=== PATIENT | male | born 1960 | race Caucasian/White ===

== ENCOUNTER 2018-03-03 06:03 | Day surgery (SDC) | payer SELFPAY ==
[~2018-03-03 06:03] MED LIST: Lactated Ringers 1,000 ML IV SCH; Lidocaine 1%/Sod Bicarbonate in NS 8.4% 1 ML Syringe IDERM PRN; Sodium Chloride 0.9% 10 ML Syringe FLUSH PRN
[2018-03-03] MEDS ORDERED: Propofol 200 MG/20 ML SDV ONE (07:20)
[2018-03-03] MEDS ORDERED: Rocuronium 50 MG/5 ML Vial ONE (07:22)
[2018-03-03] MEDS ORDERED: ceFAZolin 1 GM Vial ONE ×2 (07:24)
--- NOTE | 2018-03-03 07:26 | PCM.PREANE ---
Preanesthetic Assessment - Procedure Proposed Procedure: I&D and partial amputation of right 5th metatarsal - Anesthesia/Transfusion/Family Hx Anesthesia History: Prior Anesthesia Without Reaction Family History of Anesthesia Reaction: No Transfusion History: No Prior Transfusion(s) - Review of Systems General: No Symptoms Pulmonary: No Symptoms Cardiovascular: No Symptoms Gastrointestinal: No Symptoms Neurological: No Symptoms Other: Reports: Diabetes - Physical Assessment NPO Status Date: 03/03/18 NPO Status Time: 23:00 O2 Sat by Pulse Oximetry: 93 Respiratory Rate: 18 Vital Signs: Last Vital Signs Temp 36.7 C 03/03/18 06:05 Pulse 79 03/03/18 06:05 Resp 18 03/03/18 06:05 BP 154/85 H 03/03/18 06:05 Pulse Ox 93 L 03/03/18 06:05 Height: 1.8 m Weight: 102.512 kg ASA Class: 2 Mental Status: Alert & Oriented x3 Airway Class: Mallampati = 3 Dentition: Reports: Dentures (upper ) Thyro-Mental Finger Breadths: 4 Mouth Opening Finger Breadths: 4 ROM/Head Extension: Full Lungs: Clear to Auscultation, Normal Respiratory Effort Cardiovascular: Regular Rate, Regular Rhythm - Lab Values: Laboratory Last Values POC Glucose 150 mg/dL (70-105) H 03/03/18 06:11 - Allergies Allergies/Adverse Reactions: Allergies Allergy/AdvReac Type Severity Reaction Status Date / Time No Known Allergies Allergy Verified 03/03/18 06:59 - Blood Blood Available: No Product(s) Available: None - Anesthesia Plan Pre-Op Medication Ordered: None - Acknowledgements Anesthesia Type Planned: General Anesthesia Pt an Appropriate Candidate for the Planned Anesthesia: Yes Alternatives and Risks of Anesthesia Discussed w Pt/Guardian: Yes Pt/Guardian Understands and Agrees with Anesthesia Plan: Yes PreAnesthesia Questionnaire - SUBSTANCE USE Smoking Status *Q: Former Smoker Recreational Drug Use History: No - HOME MEDS Home Medications: Home Meds Aspirin 81 mg PO DAILY 03/02/18 [History] Insulin Glargine,Hum.Rec.Anlog [Lantus Solostar] 40 units SQ QAM 03/02/18 [ History] atorvaSTATin [Lipitor] 20 mg PO DAILY 03/02/18 [History] metFORMIN [Glucophage XR] 500 mg PO DAILY 03/02/18 [History] Acetaminophen/HYDROcodone [[place] 325-5 MG] 1 - 2 tab PO Q6H PRN #40 tablet 03/03 [Rx] Enoxaparin Sodium [Lovenox] 40 mg SQ DAILY #14 ml 03/03/18 [Rx] - CURRENT (IN HOUSE) MEDS Current Meds: Current Medications Lactated Ringer's (Ringers, Lactated) 1,000 mls @ 125 mls/hr IV ASDIRECTED DEA Lidocaine/Sodium Bicarbonate (Buffered Lidocaine 1% In Ns 8.4%) 0.25 ml IDERM ONETIME PRN PRN Reason: Prior to IV Start Sodium Chloride (Saline Flush) 10 ml FLUSH ASDIRECTED PRN PRN Reason: Keep Vein Open
[2018-03-03] MEDS ORDERED: fentaNYL 250 MCG/5 ML SDV ONE (07:27)
[2018-03-03] MEDS ORDERED: Sodium Chloride 0.9% 1,000 ML IV SCH (07:30)
[2018-03-03] MEDS ORDERED: Lidocaine 1% 2 ML ONE ×2 (07:32)
[2018-03-03] MEDS ORDERED: Midazolam 1 MG/ML 2 ML SDV ONE (07:33)
[2018-03-03] MEDS ORDERED: Neostigmine Methylsulfate 10 MG/10 ML MDV ONE (08:26)
[2018-03-03] MEDS ORDERED: ePHEDrine 50 MG/ML SDV ONE (08:26)
[2018-03-03] MEDS ORDERED: Glycopyrrolate 0.2 MG/ML SDV ONE (08:26)
[2018-03-03] MEDS ORDERED: Lactated Ringers 0 ML ONE (08:43)
[2018-03-03] MEDS ORDERED: Sodium Chloride 0.9% 1,000 ML ONE (08:43)
--- NOTE | 2018-03-03 09:12 | CR ---
Right foot: Single fluoroscopic spot view was obtained utilizing C-arm device. Study shows probe device along the lateral midfoot. Fluoroscopy time given is 6.7 seconds. Impression: 1. Procedural study. Diagnostic code #2
[2018-03-03] MEDS ORDERED: Meperidine PF 50 MG/ML Syringe IVPUSH PRN (09:32)
[2018-03-03] MEDS ORDERED: fentaNYL 100 MCG/2 ML SDV IVPUSH PRN (09:32)
[2018-03-03] MEDS ORDERED: Ondansetron 4 MG/2 ML SDV IVPUSH PRN (09:32)
[2018-03-03] MEDS ORDERED: diphenhydrAMINE 50 MG/ML SDV IVPUSH PRN (09:32)
--- NOTE | 2018-03-03 09:32 | PCM.POSTAN ---
POST ANESTHESIA ASSESSMENT - MENTAL STATUS Mental Status: Alert, Oriented - VITAL SIGNS Pulse Rate: 91 SaO2: 95 Resp Rate: 12 Blood Pressure: 131/76 Temperature: 36.6 C - RESPIRATORY Respiratory Status: Respiratory Rate WNL, Airway Patent, O2 Saturation Stable, Supplemental Oxygen - CARDIOVASCULAR CV Status: Pulse Rate WNL, Blood Pressure Stable - GASTROINTESTINAL GI Status: No Symptoms - PAIN Pain Score: 0 - POST OP HYDRATION Hydration Status: Adequate & Stable
--- NOTE | 2018-03-03 10:45 | PCM.SN ---
- Free Text/Narrative Note: Note: PICC line insertion Date: 03-03-18 Start: 0955 Stop: [address] Perez for PICC placement for residential antibiotic use. Chart reviewed. Patient educated. Agrees to proceed. Consent signed. Site cleansed with ChloraPrep. Ultrasound guidance used to locate right proximal antecubital vein with sterile US sleeve. Lidocaine 1% local anesthetic injected prior to 20ga IV catheter insertion. Sterile gown, gloves and drape used. 4fr [place] NXT ClearVue PICC inserted 50cm per sterile technique right proximal antecubital. Secured with statlock. Flushes well with NaCl with good blood return. Dressed with opsite with CHG. Chest Xray taken. Confirmed SVC placement per radiologist. Leroy Carr RN MDS
--- NOTE | 2018-03-03 10:52 | CR ---
Chest: Portable view of the chest was obtained. Comparison: No prior chest x-ray. Right-sided PICC line is seen. Tip lies in the expected region of the superior vena cava which is satisfactory in position. Heart size and mediastinum are normal. Lungs are clear. Bony structures are grossly intact. Impression: 1. Satisfactory position of PICC line. Diagnostic code #2
[2018-03-03] MEDS ORDERED: Vancomycin 1.75 GM in Sodium Chloride 0.9% 500 ML IV ONE (11:00)
[2018-03-03] MEDS ORDERED: Cefepime 2 GM in Premix Bag 1 BAG IV ONE (11:15)
--- NOTE | 2018-03-03 17:52 | PCM48HPAN ---
Post Anesthesia Note - EVALUATION WITHIN 48HRS OF ANESTHETIC Vital Signs in Normal Range: Yes Patient Participated in Evaluation: Yes Respiratory Function Stable: Yes Airway Patent: Yes Cardiovascular Function Stable: Yes Hydration Status Stable: Yes Pain Control Satisfactory: Yes Nausea and Vomiting Control Satisfactory: Yes Mental Status Recovered: Yes
--- NOTE | 2018-03-08 06:50 | PCM.OPNOTE ---
- General Post-Op/Procedure Note Date of Surgery/Procedure: 03/03/18 Operative Procedure(s): right foot irrigation and debridement with wound vac placement Pre Op Diagnosis: right foot abscess Post-Op Diagnosis: Same Anesthesia Technique: General LMA Primary Surgeon: Marcelo Perez Anesthesia Provider: Leroy Carr Family Member Caretaker: Cherry Varghese in mLs: 10 Complications: None Condition: Good
--- NOTE | 2018-03-08 07:16 | OR ---
DATE OF OPERATION: 03/03/2018 SURGEON: Marcelo Perez MD OPERATION PERFORMED: Right foot irrigation and debridement with wound VAC placement. PREOPERATIVE DIAGNOSIS: Right foot abscess. POSTOPERATIVE DIAGNOSIS: Right foot abscess. ANESTHESIA: General LMA with local. ANESTHESIA PROVIDER: Leroy Carr. HANDCREW FOREMAN: Cherry Varghese PA-C. ESTIMATED BLOOD LOSS: 10 mL. COMPLICATIONS: None. CONDITION: Stable. DESCRIPTION OF PROCEDURE: The patient was identified in the preoperative holding area. Proper site was marked and identified by the surgeon. The patient was taken back to the operating theater where after adequate anesthesia, the patient's right lower extremity had nonsterile tourniquet applied and it was then sterilely prepped and draped in the usual sterile fashion. OR time-out was performed. The patient received antibiotics after cultures were taken intraoperatively. At this time, right lower extremity was elevated and tourniquet was insufflated 250 mmHg. At this time, the patient's large previous wound bed was identified. There was noted to be a lot of tissue around the periphery as well as in the wound bed. The patient also did have small scab over the dorsal lateral aspect of the proximal foot that was unroofed. There was noted to be significant purulent formation in there. At this time, this was unroofed and a curette and rongeur were used to resect tissue at this time. At this time, on the wound bed, I did resect tissue and skin from around the wound bed as well as muscle and brought back to clean margins all throughout the foot. I did debride roughly 20 square cm of tissue. There was exposed bone noted as well as tendon. The tendon was resected. The bone was able to be covered with plantar aspect of the soft tissue and muscle. At this time, a 3 L of normal saline was irrigated through the foot. Again, more debridement was then done of any nonviable looking tissue. At this time, 3-0 nylon simple sutures were used as retention to approximate soft tissue over the bone and tendon. At this time, I did get good closure over it. Next, a wound VAC was then placed over the right foot over both areas, unroofed ulceration as well as previous open wound bed. Measurements were taken at this time by wound therapy. The patient had a wound VAC placed and was sent to PACU in stable condition. We will begin IV antibiotics. TAMARA: 03/08/2018 06:53:23 MMODAL /[id number]
== END 2018-03-03 13:50 | disposition home or self-care (01) ==
LOC: JD.SDS 06:03
PROVIDERS: ATTEND Orthopaedic Surgery
DX: L02.611 Cutaneous abscess of right foot (principal); E11.10 Type 2 diabetes mellitus with ketoacidosis without coma; E11.40 Type 2 diabetes mellitus with diabetic neuropathy, unspecified; I73.9 Peripheral vascular disease, unspecified; E88.09 Other disorders of plasma-protein metabolism, not elsewhere classified; Z87.891 Personal history of nicotine dependence; Z79.82 Long term (current) use of aspirin; Z79.4 Long term (current) use of insulin; Z79.899 Other long term (current) drug therapy
CPT/HCPCS: 11043; 76000; 82962; 87075; 87077; 87186; 87205; 87641; 93005; C1751; J0690; J0692; J2250; J2710; J3010; J3370; J3490; J7040; 01470; 36569; J2001; J2704; J7120

== ENCOUNTER 2018-03-10 18:59 | Emergency (ER) | payer OTHER ==
[2018-03-10] MEDS ORDERED: Furosemide 40 MG/4 ML VIAL IVPUSH ONE (19:29)
--- NOTE | 2018-03-10 19:48 | EDM.PDOC ---
ED HPI GENERAL MEDICAL PROBLEM - General Chief Complaint: Cardiovascular Problem Stated Complaint: SWELLING IN HIS FEET Time Seen by Provider: 03/10/18 19:24 Source of Information: Reports: Patient, Family History Limitations: Reports: No Limitations - History of Present Illness INITIAL COMMENTS - FREE TEXT/NARRATIVE: Patient is a 57-year-old male who presents to the ED complaining of retaining fluids. Patient states he's gained approximately 30lbs Over the past month. Patient is a diabetic and underwent amputation of the right fifth toe secondary to osteomyelitis. In addition he's had angioplasty of the right leg to which did not reveal any significant blockages. He is seeing Dr. Perez for further management. Amputation of the right toe took place in [facility] by a general surgeon. Since starting IV vancomycin he has increased swelling to his legs and abdomen. In addition is experiencing some PND and orthopnea. There has been no chest pain or increased SOB with exertion. There's been no documented fever or pain with urination. He has been eating a high protein low salt diabetic diet. He has no history of congestive heart failure and/or kidney disease. He did see Dr. Hughes on follow-up visit today in which they would not start the patient on any diuretics. Patient also spoke to his PCP Dr. Coffman without further workup they would not start Lasix as well. They were in fear the patient may have had a silent PA. Again patient had no CP or increasing shortness of breath with exertion. Over the past few weeks has been more sedentary than normal. - Related Data Allergies Allergy/AdvReac Type Severity Reaction Status Date / Time No Known Allergies Allergy Verified 03/10/18 19:18 Home Meds: Home Meds Aspirin 81 mg PO DAILY 03/02/18 [History] Insulin Glargine,Hum.Rec.Anlog [Lantus Solostar] 40 units SQ QAM 03/02/18 [ History] atorvaSTATin [Lipitor] 20 mg PO DAILY 03/02/18 [History] metFORMIN [Glucophage XR] 500 mg PO DAILY 03/02/18 [History] Acetaminophen/HYDROcodone [[place] 325-5 MG] 1 - 2 tab PO Q6H PRN #40 tablet 03/03 [Rx] Enoxaparin Sodium [Lovenox] 40 mg SQ DAILY #14 ml 03/03/18 [Rx] Furosemide [Lasix] 20 mg PO BID #60 tab 03/10/18 [Rx] Potassium Chloride [Klor-Con M20] 20 meq PO QAM #30 tab.er 03/10/18 [Rx] Social & Family History - Tobacco Use Smoking Status *Q: Former Smoker Used Tobacco, but Quit: Yes Month/Year Tobacco Last Used: Dec 2017 - Caffeine Use Caffeine Use: Reports: None - Recreational Drug Use Recreational Drug Use: No Drug Use in Last 12 Months: No ED ROS GENERAL - Review of Systems Review Of Systems: See Below ED EXAM, GENERAL - Physical Exam Exam: See Below Exam Limited By: No Limitations General Appearance: Alert, WD/WN, No Apparent Distress Ears: Hearing Grossly Normal Nose: Normal Inspection Throat/Mouth: Normal Voice, No Airway Compromise Neck: Normal Inspection, Supple Respiratory/Chest: No Respiratory Distress, Lungs Clear, Normal Breath Sounds, No Accessory Muscle Use, Chest Non-Tender Cardiovascular: Normal Peripheral Pulses, Regular Rate, Rhythm, No Murmur Peripheral Pulses: 2+: Femoral (L), Femoral (R), 4+: Radial (R) GI/Abdominal: Normal Bowel Sounds, Soft, Non-Tender, No Organomegaly, Distended Extremities: Pedal Edema, Other (Walking boot to the right foot with sock. ) Neurological: Alert, Oriented, CN II-XII Intact, Normal Cognition Psychiatric: Normal Affect, Normal Mood Skin Exam: Warm, Dry, Intact, Normal Color EKG INTERPRETATION EKG Date: 03/10/18 Time: 19:29 Rhythm: Other (Sinus rhythm) Rate (Beats/Min): 80 [place]: RAD-Right [place] Deviation P-Wave: Present QRS: Normal ST-T: Depressed (Inferior lateral leads. No acute ST changes.) QT: Normal SD/PQ Interval: 180 Course - Orders/Labs/Meds Labs: Laboratory Tests 03/10/18 03/10/18 03/10/18 Range/Units 20:04 20:04 20:04 WBC 7.80 (4.23-9.07) K/mm3 RBC 4.33 L (4.63-6.08) M/mm3 Hgb 12.7 L (13.7-17.5) gm/L Hct 40.1 (40.1-51.0) % MCV 92.6 H (79.0-92.2) fl MCH 29.3 (25.7-32.2) pg MCHC 31.7 L (32.2-35.5) g/dl RDW Std Deviation 43.2 (35.1-43.9) fL Plt Count 195 (163-337) K/mm3 MPV 11.0 (9.4-12.3) fl Neutrophils % (Manual) 60 (40-60) % Band Neutrophils % 0 (0-10) % Lymphocytes % (Manual) 32 (20-40) % Atypical Lymphs % 0 % Monocytes % (Manual) 1 L (2-10) % Eosinophils % (Manual) 6 (0.8-7.0) % Basophils % (Manual) 1 (0.2-1.2) Platelet Estimate Adequate RBC Morph Comment Normal Sodium 140 (136-145) mEq/L Potassium 3.9 (3.5-5.1) mEq/L Chloride 105 (98-107) mEq/L Carbon Dioxide 28 (21-32) mEq/L Anion Gap 10.9 (5-15) BUN 12 (7-18) mg/dL Creatinine 1.0 (0.7-1.3) mg/dL Est Cr Clr Drug Dosing TNP Estimated GFR (MDRD) > 60 (>60) mL/min BUN/Creatinine Ratio 12.0 L (14-18) Glucose 171 H (74-106) mg/dL Calcium 8.6 (8.5-10.1) mg/dL Total Bilirubin 0.4 (0.2-1.0) mg/dL AST 22 (15-37) U/L ALT 24 (16-63) U/L Alkaline Phosphatase 189 H (46-116) U/L Troponin I < 0.017 (0.00-0.056) ng/mL NT-Pro-B Natriuret Pep 1896 H (0-125) pg/mL Total Protein 7.1 (6.4-8.2) g/dl Albumin 2.7 L (3.4-5.0) g/dl Globulin 4.4 gm/dL Albumin/Globulin Ratio 0.6 L (1-2) Meds: Medications Discontinued Medications Generic Name Dose Route Start Last Admin Trade Name Freq PRN Reason Stop Dose Admin Furosemide 40 mg 03/10/18 19:29 03/10/18 19:44 Lasix IVPUSH 03/10/18 19:30 40 mg NOW ONE Administration Potassium Chloride 20 meq 03/10/18 21:22 03/10/18 21:35 Klor-Con M20 PO 03/10/18 21:23 20 meq ONETIME ONE Administration - Re-Assessments/Exams Free Text/Narrative Re-Assessment/Exam: Will obtain CBC, chem 14, proBNP, troponin, chest x-ray, and EKG. Reviewed CXR with Dr. Chauhan. Findings consistent for increased pulmonary vascularization with fluid collecting along the horizontal fissure. Ordered Lasix 40 mg IV. EKG reviewed. Labs reviewed: CBC essentially normal. CMP was essentially normal as well. Glucose 171. Alk phosphatase was 189. Troponin less than 0.017. ProBNP was elevated at 1896. On examination patient is retaining fluids with increased fluid to the extremities extending to the inguinal region. Skin is taunt to the lower legs with pitting pedal edema. Unable to palpate pedal pulses. After administration of the IV Lasix patient's symptoms have improved. Patient's condition is associated with overload of fluids secondary to recent antibiotic infusion. Patient is receiving approximately 1100 mL of fluid every day with receiving vancomycin twice a day. He has no history of heart issues in the past. He has been maintaining a low sodium diabetic diet. Has gained approximately 30 pounds over the last 3-4 weeks. Plan is to obtain echocardiogram on outpatient basis. We'll start the patient on IV Lasix 20 mg twice a day with antibiotic infusions. Will have this take place for 2 weeks then transition to oral Lasix. In addition we'll start the patient on potassium supplementation. First dose 20 mEq ordered here in the ED. Patient was instructed with every morning infusion to urinate then check his weight and keep a daily log to see if this is trending downward. Repeat BMP will be obtained this Tuesday. Will advise him to make an appointment with his PCP on Tuesday or Tuesday. He was instructed to return to the ED if he develops any new or worsening symptoms. Departure - Departure Time of Disposition: 21:26 Disposition: Home, Self-Care 01 Condition: Good Clinical Impression: Elevated brain natriuretic peptide (BNP) level, Pedal edema Volume overload Qualifiers: Hypervolemia type: transfusion-associated Qualified Code(s): E87.71 - Transfusion associated circulatory overload Prescriptions: Furosemide [Lasix] 20 mg PO BID #60 tab Potassium Chloride [Klor-Con M20] 20 meq PO QAM #30 tab.er Instructions: Natriuretic Peptides Test, Edema, [id number] Referrals: Alvaro Cutler [Primary Care Provider] - Forms: ED Department Discharge Additional Instructions: Plan is to have you be administered Lasix 20 mg twice a day with IV infusions of vancomycin. Record daily morning wait after urinating prior to infusion so that we can trend. Take potassium 20 mEq every day. Repeat BMP will be conducted on Tuesday to reevaluate electrolyte levels and kidney function. Will have you continue with the IV Lasix for 2 weeks and then transition to oral Lasix 20 mg twice a day. I will have you follow-up with your primary care provider next week for reevaluation. Please call and make an appt on Tuesday. He may adjust your Lasix dosage as needed. Remain on a low salt diet. Eat plenty of proteins. I have also ordered a echocardiogram which will be conducted on the outpatient basis. They will call you with appointment time. Please return to the ED if you develop any new or worsening symptoms as discussed. Elevate legs when able to reduce any swelling.
[2018-03-10] MEDS ORDERED: Potassium Chloride 20 MEQ Tab.ER PO ONE (21:22)
--- NOTE | 2018-03-11 09:55 | CR ---
Chest: Portable view of the chest was obtained. Comparison: Prior chest x-ray of 03/03/18. Increased parenchymal density is seen within the left base as an interval change from prior study. Slight atelectasis adjacent to the minor fissure is seen. Possible small right sided pleural effusion is seen. Pulmonary vessels appear slightly congested. Heart size is slightly enlarged. Upper mediastinum is normal. Right-sided PICC line is seen with tip lying within the superior vena cava in satisfactory position. Slight scoliosis is noted within the spine. Impression: 1. Increased parenchymal density within the left base. This could represent atelectasis or small area of pneumonia if patient has infectious symptoms. 2. Small right sided pleural effusion. 3. Slightly prominent pulmonary vessels. 4. Other incidental findings. Diagnostic code #3
== END 2018-03-10 21:43 | disposition home or self-care (01) ==
LOC: JD.ED 18:59 → SUPCPDRO 18:59 → JD.ED 21:43
DX: R60.0 Localized edema (principal); R79.89 Other specified abnormal findings of blood chemistry; E87.71 Transfusion associated circulatory overload; Z79.82 Long term (current) use of aspirin; Z87.891 Personal history of nicotine dependence; Z79.84 Long term (current) use of oral hypoglycemic drugs; Z79.899 Other long term (current) drug therapy
CPT/HCPCS: 36415; 71045; 80053; 83880; 84484; 85025; 93005; 96374; 99285; A9270; J1940; 99284